=== PATIENT | male | born 1990 | race Caucasian/White ===

== ENCOUNTER → 2022-03-13 10:15 | Outpatient (BNVA) | payer SELFPAY | PROVIDERS: Family Provider Family Medicine; PCP Family Medicine; Visit Provider Registered Nurse Neonatal Intensive Care | DX: R50.9 Fever, unspecified (principal); J10.1 Influenza due to other identified influenza virus with other respiratory manifestations | CPT/HCPCS: 87400 ==

== ENCOUNTER → 2022-11-03 16:42 | Outpatient (BNVA) | payer SELFPAY | PROVIDERS: Family Provider Family Medicine; PCP Family Medicine; Visit Provider Registered Nurse Neonatal Intensive Care | DX: Z20.822 Contact with and (suspected) exposure to COVID-19 (principal); R31.9 Hematuria, unspecified; B34.9 Viral infection, unspecified | CPT/HCPCS: 81000; 87426 ==

== ENCOUNTER 2022-11-06 08:34 | Emergency (ER) | payer SELFPAY ==
[2022-11-06 09:04] VITALS: BP 156/116; PULSE 77; RESP 15; TEMP 36.9; O2SAT 97
--- NOTE | 2022-11-06 09:26 | ED_ITS ---
HPI - Abdominal Pain General: Chief Complaint: Abdominal Pain Stated Complaint: right kindney pain, cant pass pee or poo Time Seen by Provider: 11/06/22 08:38 Source: patient Mode of arrival: ambulatory Limitations: no limitations History of Present Illness: Patient is a 32-year-old male who presents the emergency department complaining of right flank pain onset 2 days. Patient states that he developed sudden onset of right flank pain with radiation to his right abdomen on Friday, for which he presented to urgent care. There, he had a UA that resulted in microscopic hematuria but otherwise had no imaging done or labs drawn. He presents today stating that his pain has gotten worse and that this morning he thinks he noticed some sedimentation in his urine upon using the bathroom. While he has yet to notice blood in his urine, he states that urination is painful and the pain has significantly worsened. He denies personal history of kidney stones but states that they run in his family. His nausea and vomiting have also increased since onset. He notes a subjective fever and states that he has had chills. Currently, he states pain is 0/10 but that it gets as high as a 10/10 and comes in waves. He denies any chest pain, SOB, palpitations, or any other symptoms at this time he has taken Tylenol for his pain to little avail. MD elicited complaint: flank pain Pertinent past history: none Onset (ago): day(s) (2) Pain Consistency: intermittent Location: R flank Severity: severe Pain scale (0-10): 10 Quality: sharp Radiation: RUQ and RLQ Migration to: no migration Exacerbating factors: nothing Relieving factors: nothing Associated Symptoms: Reports chills, dysuria, fever(s) (subjective), nausea and vomiting; Denies diarrhea, heartburn, hematochezia, hematuria, hematemesis and syncope Review of Systems Const: Reports: fever(s) (subjective) and chills; Denies: body aches, change in appetite, fatigue or malaise Eyes: Denies: change in vision or blurry vision Card: Denies: chest pain, palpitations, irregular heart rhythm, lightheadedness, syncope or dyspnea on exertion Resp: Reports: dyspnea; Denies: productive cough or pain on inspiration GI: Reports: abdominal pain, nausea and vomiting; Denies: hematemesis, heartburn, diarrhea, pain on defecation or hematochezia : Reports: flank pain and dysuria; Denies: difficulty urinating, urinary frequency, urinary urgency, urinary hesit alexi, hematuria or genital pain Musc: Denies: neck pain, back pain, extremity pain, extremity swelling or joint pain Skin/Breast: Denies: rash Neuro: Denies: headache(s) or dizziness Physical Exam Const: COMMON NORMALS: no acute distress, patient oriented x3, no limitations, healthy appearing, alert and well nourished GENERAL APPEARANCE: cooperative and comfortable ORIENTATION/CONSCIOUSNESS: Yes awake HENMT: COMMON NORMALS: normocephalic and atraumatic HEAD & SCALP: normo cephalic and atraumatic Chest: COMMONS NORMALS: normal inspection of the chest and normal palpation of entire chest wall Resp: COMMON NORMALS: normal respiratory effort and clear to auscultation bilaterally AUSCULTATION: clear to auscultation bilaterally Cardio: COMMON NORMALS: regular rate and regular rhythm RATE: regular rate RHYTHM: regular rhythm GI: COMMON NORMALS: Normal to inspection, nondistended, normoactive bowel sounds present, Soft to palpation, non-tender, No hepatosplenomegaly present and no masses INSPECTION: Yes normal to inspection PALPATION: Yes Soft to palpation, No Tenderness to palpation present (GI), No Guarding due to palpation present (GI), No Rigid due to palpation and Yes No hepatosplenomegaly present : BLADDER/KIDNEY EXAM: Yes CVA tenderness on the right (Positive CVA strike test) Back/Pelvis: COMMON NORMALS: thoracic and lumbar spine normal to inspection, no thoracic nor lumbar tenderness and thoraco-lumbar ROM normal GENERAL BACK: Yes CVA tenderness Extremity: COMMON NORMALS: normal to inspection GENERAL: Yes normal exam except as noted Neuro: [place] COMA SCALE: document GCS findings [place] coma scale eye opening: Spontaneous [place] coma scale verbal response: Orientated [place] coma scale motor response: Obey commands [place] coma scale total score: 15 COMMON NORMALS: patient oriented x3, moves all extremities, no focal motor deficits, no sensory deficits noted and gait normal SENSORIUM/ORIENTATION: Yes alert Skin: COMMON NORMALS: no rashes or lesions noted GENERAL SKIN EXAM: no rashes or lesions noted Course Vital Signs: Vital signs: Vital Signs Temperature 98.5 F 11/06/22 09:04 Pulse Rate 77 11/06/22 09:04 Respiratory Rate 15 08/23/23 09:04 Blood Pressure 156/116 11/06/22 09:04 Pulse Oximetry 97 11/06/22 09:04 Oxygen Delivery Me thod Room Air 11/06/22 09:04 MDM - Abdominal Pain Medical Decision Making Patient is a 32-year-old male presents to ED today with a complaint of intermittent right flank pain radiating around to his right abdomen. He was noted to have hematuria at an urgent care visit a few days ago. Patient upon initial examination appears in no acute distress. Blood work is unremarkable. His UA is clear. Based on history I suspect nephro/ureterolithiasis. CT scan obtained showing a 3 mm UPJ stone. Patient will be discharged home with urine strainer, pain/nausea medications to use as needed, flomax, and urology follow- up. Return ED precautions given. Lab Data 11/06/22 09:48 11/06/22 09:48 Labs/Radiology: Laboratory Results WBC 12.10 10^3/uL (3.29-11.43) H 11/06/22 09:48 RBC 4.75 10^6/uL (3.85-5.65) 11/06/22 09:48 Hgb 15.20 g/dL (11.27-16.99) 11/06/22 09:48 Hct 44.2 % (37-53) 11/06/22 09:48 MCV 93.1 fl (82-101) 11/06/22 09:48 MCH 32.0 pg (27-33) 11/06/22 09:48 MCHC 34.4 g/dL (30-55) 11/06/22 09:48 RDW 13.0 % (12.1-15.1) 11/06/22 09:48 Plt Count 292 10^3/cmm (157-399) 11/06/22 09:48 MPV 9.9 fL (7.4-10.4) 11/06/22 09:48 Neut % (Auto) 73.6 % 11/06/22 09:48 Lymph % (Auto) 18.7 % 11/06/22 09:48 [place] % (Auto) 4.6 % 11/06/22 09:48 Eos % (Auto) 2.6 % 11/06/22 09:48 Baso % (Auto) 0.2 % 11/06/22 09:48 Neut # (Auto) 8.89 10^3/uL (1.8-7.7) H 11/06/22 09:48 Lymph # (Auto) 2.3 10^3/uL (0.8-4.8) 11/06/22 09:48 [place] # (Auto) 0.6 10^3/uL (0.2-0.9) 11/06/22 09:48 Eos # (Auto) 0.3 10^3/uL (0.0-0.8) 11/06/22 09:48 Baso # (Auto) 0.0 10^3/uL (0.0-0.1) 11/06/22 09:48 Nucleated RBC % (auto) 0 % 11/06/22 09:48 Nucleated RBCs # 0.0 /100WBC 11/06/22 09:48 Sodium 141 mmol/L (136-145) 11/06/22 09:48 Potassium 4.0 mmol/L (3.5-5.1) 11/06/22 09:48 Chloride 105 mmol/L (98-107) 11/06/22 09:48 Carbon Dioxide 23 mmol/L (22-29) 11/06/22 09:48 Anion Gap 17.0 (5-19) 11/06/22 09:48 BUN 8 mg/dL (6-20) 11/06/22 09:48 Creatinine 1.0 mg/dL (0.7-1.2) 11/06/22 09:48 GFR Calculation 85.5 mL/min (90-130) L 11/06/22 09:48 Glucose 105 mg/dL (65-115) 11/06/22 09:48 Calculated Osmolality 291 mOsm/kg (285-295) 11/06/22 09:48 Calcium 9.2 mg/dL (8.5-10.5) 11/06/22 09:48 Total Bilirubin 0.3 mg/dL (0.15-1.2) 11/06/22 09:48 AST 19 U/L (0-40) 11/06/22 09:48 ALT 21 U/L (0-41) 11/06/22 09:48 Alkaline Phosphatase 113 U/L (40-130) 11/06/22 09:48 Total Protein 7.3 g/dL (6.6-8.7) 11/06/22 09:48 Albumin 4.8 g/dL (3.5-5.2) 11/06/22 09:48 Globulin 2.5 g/dL (1.3-4.6) 11/06/22 09:48 Urine Color Yellow (Yellow) 11/06/22 10:15 Urine Appearance Clear (CLEAR) 11/06/22 10:15 Urine pH 5 (5-7) 11/06/22 10:15 Ur Specific [place] 1.005 (1.005-1.030) 11/06/22 10:15 Urine Protein Neg (Negative) 11/06/22 10:15 Urine Glucose (UA) Norm (Normal) 11/06/22 10:15 Urine Ketones Negative (Negative) 11/06/22 10:15 Urine Blood Neg (Negative) 11/06/22 10:15 Urine Nitrate Negative (Negative) 11/06/22 10:15 Urine Bilirubin Neg (Negative) 11/06/22 10:15 Urine Urobilinogen Norm mg/dL (Negative) 11/06/22 10:15 Ur Leukocyte Esterase Negative (Negative) 11/06/22 10:15 Discharge Plan Discharge Patient Disposition: Home Clinical Impression: Ureteropelvic junction calculus Condition: Stable Prescriptions: New hydrocodone-acetaminophen 5-325 mg tablet 1 tab PO Q6H PRN (Reason: pain) Qty: 14 0RF Flomax 0.4 mg capsule 0.4 mg PO DAILY Qty: 10 0RF ondansetron 4 mg tablet,disintegrating 4 mg PO Q8H PRN (Reason: nausea and vomiting) Qty: 14 0RF No Action Tylenol Ex Str Rapid Release 500 mg Tablet 1,000 mg PO Q6H PRN (Reason: Pain) Testosterone Booster Cap 2 cap PO QAM Discharge Orders: Discharge ED (Routine); Ordered 11/06/22 Ordered By: Alysia Lakhani Referrals: Inocencio Jiang MD [Primary Care Provider] - Patient Instructions: Ureteral Stones (ED), Opioid Safety, Pain Management Activity Restrictions/Additional Instructions: As we discussed your imaging today showed a 3 mm stone in your proximal ureter. We will give you pain and nausea medications you may use if needed at home for significant discomfort. Please take the Flomax as directed. As we discussed push fluids is much as possible to help move the stone. You have been sent home with a urine strainer. Strain your urine and bring any passed stones with you to your follow-up urology appointment. You need to return to the emergency department for worsening or uncontrollable pain, fevers, repetitive episodes of vomiting or inability to hold down your antibiotics, fevers, generally feeling worse or unwell, or any other concerns you may have. I hope you begin to feel better soon. Coding Level of Care Code ED Construction Management Assistant for Kendell Jose
[2022-11-06] MEDS: sodium chloride 0.9% 1,000 ML 999 ML IV (09:53)
--- NOTE | 2022-11-06 09:59 | CT_ITS ---
WS: [id number] CT ABDOMEN PELVIS TECHNIQUE: Noncontrast CT of the abdomen and pelvis with coronal and sagittal reformatted images. CLINICAL INFORMATION: R flank/ab pain; N/V COMPARISON: None. DLP: 803.[address] scans at [facility] use at least one of these dose optimization techniques: automated e xposure control; mA and/or kV adjustment per patient size (includes targeted exams where dose is matc hed to clinical indication); or iterative reconstruction. FINDINGS: Obstructing 3.3 mm RIGHT UPJ calculus with mild RIGHT pelvocaliectasis. Distal RIGHT ureter is decomp ressed. Normal LEFT kidney and ureter. Mild hepatomegaly. Normal spleen. Normal GE junction. Lung bases are well aerated. Normal noncontrast pancreas. Adrenal glands are normal. Normal caliber abdominal aorta. Normal sigmoid colon. No evidence of small or large bowel obstruction. Tiny fat-containing umbilical hernia. IMPRESSION: 1. Obstructing 3.3 mm RIGHT UPJ calculus with mild RIGHT pelvocaliectasis. Distal RIGHT ureter is de compressed. 2. No obstructing LEFT renal or ureteral calculi. 3. Evidence of prior appendectomy with surgical clips. 4. No other acute findings. Notified JOSS Palma at 11/06/2022 10:23 AM.
[2022-11-06 10:01] LABS: Basophils % 0.2 %; Eosinophils # 0.3 10^3/uL (0.0-0.8); Eosinophils % 2.6 %; Hematocrit 44.2 % (37-53); Lymphocytes # 2.3 10^3/uL (0.8-4.8); Lymphocytes % 18.7 %; Mean Corpuscular HGB Conc 34.4 g/dL (30-55); Mean Corpuscular Volume 93.1 fl (82-101); Mean Platelet Volume 9.9 fL (7.4-10.4); Monocytes # 0.6 10^3/uL (0.2-0.9); Monocytes % 4.6 %; Neutrophils # 8.89 10^3/uL (1.8-7.7); Neutrophils % 73.6 %; Nucleated Red Blood Cells % 0 %; Platelet Count 292 10^3/cmm (157-399); Red Blood Count 4.75 10^6/uL (3.85-5.65)
[2022-11-06 10:18] LABS: Add Urine Microscopic? NO; Charge for UA Resulting for Rev
[2022-11-06 10:26] LABS: Alanine Aminotransferase 21 U/L (0-41); Albumin Level 4.8 g/dL (3.5-5.2); Alkaline Phosphatase 113 U/L (40-130); Aspartate Amino Transferase 19 U/L (0-40); Blood Urea Nitrogen 8 mg/dL (6-20); Calcium 9.2 mg/dL (8.5-10.5); Carbon Dioxide 23 mmol/L (22-29); Chloride 105 mmol/L (98-107); Globulin 2.5 g/dL (1.3-4.6); Glomerular Filtration Rate 85.5 mL/min (90-130); Glucose 105 mg/dL (65-115); Osmolality Calculated 291 mOsm/kg (285-295); Sodium 141 mmol/L (136-145); Total Bilirubin 0.3 mg/dL (0.15-1.2); Total Protein 7.3 g/dL (6.6-8.7)
[2022-11-06 10:27] LABS: Bilirubin Urine Neg (Negative); Blood Urine Neg (Negative); Glucose Urine UA Norm (Normal); Ketones Urine Negative (Negative); Leukocyte Esterase Urine Negative (Negative); Nitrate Urine Negative (Negative); Protein Urine Neg (Negative); Specific Gravity, Urine 1.005 (1.005-1.030); Urine Appearance Clear (CLEAR); Urine Color Yellow (Yellow); Urobilinogen Urine Norm (Negative); pH Urine 5 (5-7)
--- NOTE | 2022-11-07 13:15 | DCPLANNER ---
supply chain development manager had message to schedule a follow up appointment for patient with urology. supply chain development manager called phone number [phone] to confirm where patient would like referral sent due to no urologist in the area. supply chain development manager was unable to speak with patient at this time, a voicemail was left for patient to return pillowcase folder phone call.
== END 2022-11-06 11:31 | disposition home or self-care (01) ==
PROVIDERS: Emergency Provider Physician Assistant; PCP Family Medicine
DX: N20.1 Calculus of ureter (principal)
CPT/HCPCS: 36415; 74176; 80053; 81003; 85025; 99284; J7030

== ENCOUNTER 2023-03-14 14:14 | Emergency (ER) | payer SELFPAY ==
[2023-03-14 14:15] VITALS: BP 164/114; PULSE 72; RESP 18; TEMP 36.7; O2SAT 96; BMI 32.5
[2023-03-14] MEDS: dexamethasone 10 mg/mL INJ IVP (14:53)
[2023-03-14] MEDS: morphine 4 mg/mL SDV 1 mL IVP (14:53)
--- NOTE | 2023-03-14 15:14 | ED_ITS ---
HPI - Back Pain/Injury General: Chief Complaint: Back Pain/Injury Stated Complaint: back pain Time Seen by Provider: 03/14/23 14:31 Source: patient and EMS Mode of arrival: EMS Limitations: no limitations History of Present Illness: 33-year-old male who states that just pr ior to arrival he started having severe left lower back pain with spasms he states that he was not able to ambulate due to the spasms and any movement hurt. Denies any pain shooting down his leg denies any abdominal pain or fever. He did receive Toradol and route states he feels much improved pain is now 3 out of 10 denies any known injuries Associated symptoms: Deny abdominal pain, chills, dysuria, fever(s), nausea or vomiting Review of Systems Const: Denies: fever(s), chills, body aches or change in appetite ENMT: Denies: throat pain or dental pain Card: Denies: chest pain Resp: Denies: dyspnea GI: Denies: abdominal pain, nausea, vomiting or diarrhea : Denies: dysuria Musc: Reports: back pain; Denies: neck pain Skin/Breast: Denies: rash Neuro: Denies: headache(s) PFSH ED PFSH: Medical History Alpha-galactosidase A deficiency Impetigo contagiosa Physical Exam Const: COMMON NORMALS: no acute distress, patient oriented x3 and healthy appearing HENMT: COMMON NORMALS: normocephalic and atraumatic HEAD & SCALP: normocephalic and atraumatic Neck/C-Spine: COMMON NORMALS: full ROM and supple Chest: COMMONS NORMALS: normal inspection of the chest Resp: COMMON NORMALS: normal respiratory effort Cardio: COMMON NORMALS: regular rate, regular rhythm and No murmurs present (Cardio) RATE: regular rate RHYTHM: regular rhythm GI: COMMON NORMALS: Normal to inspection, nondistended, normoactive bowel sounds present, Soft to palpation, non-tender and no masses PALPATION: Yes S oft to palpation Back/Pelvis: OTHER: Tenderness to left lower back no midline tenderness no saddle anesthesia Extremity: COMMON NORMALS: normal to inspection and full ROM Neuro: COMMON NORMALS: patient oriented x3, moves all extremities and no focal motor deficits Psych: COMMON NORMALS: mental status grossly normal, Normal thought process present and cooperative THOUGHT PROCESS: Normal thought process present Skin: COMMON NORMALS: no rashes or lesions noted and no wounds GENERAL SKIN EXAM: no rashes or lesions noted Course Vital Signs: Vital signs: Vital Signs Temperature 98.1 F 03/14/23 14:15 Pulse Rate 72 03/14/23 14:15 Respiratory Rate 18 03/14/23 14:15 Blood Pressure 164/114 03/14/23 14:15 Pulse Oximetry 96 03/14/23 14:15 Oxygen Delivery Me thod Room Air 03/14/23 14:15 MDM - Back Pain/Injury Medical Decision Making Patient presents here with low back pain with muscle spasm he feels much improved he is able to ambulate without any difficulty we will prescribe him Naprosyn [place] and Robaxin for home he is to ice he is to follow-up with PCP and return if worsening he has no signs of epidural abscess or cord compression. Medical Records I reviewed the patient's medical records. No radiology studies performed this visit Discharge Plan Discharge Patient Disposition: Home Clinical Impression: Muscle spasm of back Low back pain Qualifiers: Chronicity: acute Back pain laterality: left Sciatica presence: without sciatica Qualified Code(s): M54.50 - Low back pain, unspecified Condition: Stable Prescriptions: New hydrocodone-acetaminophen 5-325 mg tablet 1 tab PO Q6H PRN (Reason: pain) Qty: 14 0RF methocarbamol 750 mg tablet 750 mg PO Q6H PRN (Reason: spasms) Qty: 20 0RF Naprosyn 500 mg tablet 500 mg PO BID PRN (Reason: pain) Qty: 20 0RF No Action loratadine 10 mg tablet 10 mg PO DAILY PRN (Reason: allergic symptoms) Qty: 30 0RF amoxicillin-pot clavulanate 875-125 mg tablet 1 tab PO BID Qty: 14 0RF Tylenol Ex Str Rapid Release 500 mg Tablet 1,000 mg PO Q6H PRN (Reason: Pain) Testosterone Booster Cap 2 cap PO QAM Discharge Orders: Discharge ED (Routine); Ordered 03/14/23 Ordered By: Mert Newman Referrals: Inocencio Jiang MD [Primary Care Provider] - 1-3 days Discharge Diet: Advance as tolerated Discharge Activity: Resume usual activity Patient Instructions: Muscle Spasm (ED), Back Pain (ED), Opioid Safety Coding Level of Care Code ED Pastry Decorator for Kendell Jose
== END 2023-03-14 15:42 | disposition home or self-care (01) ==
PROVIDERS: Emergency Provider Emergency Medicine; PCP Family Medicine
DX: M54.50 Low back pain, unspecified (principal); M62.830 Muscle spasm of back
CPT/HCPCS: 96374; 96375; 99284; J1100; J2270